=== PATIENT | female | born 2000 | race Caucasian/White ===

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

== ENCOUNTER 2021-07-04 18:28 | Inpatient (IN) ==
[2021-07-04 15:30] LABS: Bacteria,Urine Few per hpf (None-Few); Bilirubin,Urine Negative (Negative); Blood,Urine Negative (Negative); Clarity,Urine Turbid (Clear); Color,Urine Light-Yellow (Yellow); Glucose,Urine (UA) Normal (Normal); Ketones,Urine Trace mg/dL (Negative); Leukocyte Esterase,Urine Moderate (Negative); Mucus,Urine Few per lpf (None-Few); Nitrite,Urine Negative (Negative); Protein,Urine 30 mg/dL (Neg-Trace); RBC,Urine 0-3 per hpf (0-3); Specific Gravity,Urine 1.022 (1.010-1.025); Squamous Epithelial Cell,Urine Moderate per hpf (None-Few); Urobilinogen,Urine Normal (Normal); WBC,Urine 0-3 per hpf (0-3)
[~2021-07-04 18:28] MED LIST changes: +*HR* Nalbuphine 10 MG/ML AMPUL IV PRN; -*HR* Nalbuphine 10 MG/ML AMPUL IVP PRN; +Azithromycin 500 MG in 0.9 % Sodium Chloride 250 ML IVPB PRN; +Lidocaine 1% 20 ML MDV INFILT PRN; -Ondansetron 4 MG/2 ML VIAL IVP PRN; +Penicillin G Potassium 5,000,000 UNIT in 0.9 % Sodium Chloride Mini Bag 100 ML IVPB ONE; +Ringers Solution, Lactated 1,000 ML IVC SCH
[2021-07-04 19:03] LABS: Basophils % 0.5 %; Eosinophils # 0.2 K/mcL (0.0-0.6); Hematocrit 30.1 % (35.3-44.9); Hemoglobin 9.8 g/dL (11.5-15.4); Immature Granulocytes % 1.3 % (0-4); Lymphocytes # 2.1 K/mcL (0.6-4.6); Lymphocytes % 25.2 %; Mean Corpuscular HGB Conc 32.6 g/dL (31.6-35.5); Mean Platelet Volume 10.3 fL (9.4-12.4); Monocytes # 0.9 K/mcL (0.0-1.3); Monocytes % 10.9 %; Neutrophils # 5.1 K/mcL (1.6-8.9); Platelet Count 174 K/mcL (140-400); Red Cell Distribution Width 14.9 % (11.5-14.5); Segmented Neutrophils % 60.1 %; White Blood Count 8.4 K/mcL (4.3-11.1)
[2021-07-04 19:21] LABS: Amphetamine Screen,Urine Negative ng/mL (Cutoff=1000); Barbiturate Screen,Urine Negative ng/mL (Cutoff=200); Benzodiazepines Screen,Urine Negative ng/mL (Cutoff=200); Cannabinoid Screen,Urine Positive ng/mL (Cutoff = 50); Cocaine Screen,Urine Negative ng/mL (Cutoff= 300); Opiate Screen,Urine Negative ng/mL (Cutoff=300); Phencyclidine Screen,Urine Negative ng/mL (Cutoff=25)
[2021-07-04] MEDS ORDERED: Acetaminophen 325 MG TABLET PO ONE (19:31)
[2021-07-04 19:39] LABS: Influenza A PCR Negative (Negative); Influenza B PCR Negative (Negative); Resp. Syncytial Virus PCR Negative (Negative)
[2021-07-04 19:40] LABS: SARS-CoV-2 by PCR (In House) Negative (Negative)
[2021-07-04] MEDS: Ondansetron 4 MG/2 ML VIAL IVP PRN (19:40)
[2021-07-04] MEDS ORDERED: Ropivacaine/PF 0.2% 20 ML VIAL EP ONE (20:02)
[2021-07-04] MEDS ORDERED: EPHEDrine 50 MG/ML VIAL IVP PRN (20:02)
[2021-07-04] MEDS ORDERED: *HR* FentaNYL (PF) 100 MCG/2 ML VIAL EP ONE (20:02)
[2021-07-04] MEDS ORDERED: D5% in 0.45% NACL 1,000 ML IVC SCH (21:30)
[2021-07-04] MEDS: Penicillin G Potassium 2,500,000 UNIT/105 ML MLS IVPB SCH (22:36)
[2021-07-05] MEDS: Penicillin G Potassium 2,500,000 UNIT/105 ML MLS IVPB SCH ×4 (02:03→14:32)
[2021-07-05] MEDS: Epidural Premix (fent/bupiv) 110 ML EP SCH ×2 (04:05→10:00)
[2021-07-05] MEDS: Ondansetron 4 MG/2 ML VIAL IVP PRN ×2 (07:38→15:30)
[2021-07-05] MEDS ORDERED: Oxytocin 20 units/ LR 1000 mL 20 UNIT/1,000 ML BAG IVC SCH ×2 (10:15→18:30)
[2021-07-05] MEDS ORDERED: miSOPROStoL 100 MCG TABLET RC ONE (12:06)
[2021-07-05] MEDS ORDERED: *HR* Ropivacaine/PF 0.5% 20 ML VIAL ONE (13:37)
[2021-07-05] MEDS ORDERED: Ropivacaine/PF 0.2% 20 ML VIAL ONE (13:37)
[2021-07-05] MEDS ORDERED: *HR* FentaNYL (PF) 100 MCG/2 ML VIAL ONE (14:48)
[2021-07-05] MEDS ORDERED: Bupivacaine-MPF 0.25% 10 ML VIAL ONE (14:58)
[2021-07-05] MEDS ORDERED: Calcium Gluconate 1,000 MG/10 ML VIAL IVP PRN (15:49)
[2021-07-05] MEDS ORDERED: Magnesium Sulf 20 gm/SW 500mL 20 GM/500 ML IV.SOLN IVC SCH (16:00)
[2021-07-05 16:25] LABS: Basophils % 0.4 %; Eosinophils # 0.1 K/mcL (0.0-0.6); Eosinophils % 0.9 %; Hematocrit 29.8 % (35.3-44.9); Hemoglobin 9.5 g/dL (11.5-15.4); Immature Granulocytes % 0.9 % (0-4); Lymphocytes # 1.7 K/mcL (0.6-4.6); Lymphocytes % 17.3 %; Mean Corpuscular HGB Conc 31.9 g/dL (31.6-35.5); Mean Corpuscular Hemoglobin 27.2 pg (28.0-33.3); Mean Corpuscular Volume 85.4 fL (83.0-100.0); Mean Platelet Volume 10.4 fL (9.4-12.4); Monocytes # 0.8 K/mcL (0.0-1.3); Monocytes % 7.9 %; Neutrophils # 7.3 K/mcL (1.6-8.9); Platelet Count 170 K/mcL (140-400); Red Blood Count 3.49 M/mcL (3.82-4.97); Red Cell Distribution Width 14.7 % (11.5-14.5); Segmented Neutrophils % 72.6 %
[2021-07-05 16:33] LABS: Protein/Creatinine Ratio,Urine 0.29 mg/mg (0.00-0.20)
[2021-07-05 16:43] LABS: Alanine Aminotransferase 8 Units/L (7-52); Aspartate Amino Transferase 14 Units/L (13-39); BUN/Creatinine Ratio 11 (6-26); Blood Urea Nitrogen 6 mg/dL (6-20); Uric Acid 5.9 mg/dL (2.3-7.6); eGFR For African Americans > 60 (> 60); eGFR For Non-African Americans > 60 (> 60)
[2021-07-05] MEDS ORDERED: Benzocaine/Menthol 56 GM AEROSOL SPRAY TP PRN (18:30)
[2021-07-05] MEDS ORDERED: Lanolin 7 G OINT...G. TP PRN (18:30)
[2021-07-05] MEDS ORDERED: Ondansetron ODT 4 MG TAB.RAPDIS SL PRN (18:30)
[2021-07-05] MEDS: Acetaminophen 325 MG TABLET PO SCH (19:08)
[2021-07-05] MEDS: Ibuprofen 600 MG TABLET PO SCH (20:28)
[2021-07-06] MEDS: Acetaminophen 325 MG TABLET PO SCH ×4 (01:30→23:44)
[2021-07-06] MEDS ORDERED: Magnesium Sulf 20 gm/SW 500mL 20 GM/500 ML IV.SOLN IVC SCH ×2 (03:00→08:50)
[2021-07-06] MEDS: Ibuprofen 600 MG TABLET PO SCH ×4 (03:38→23:44)
[2021-07-06] MEDS ORDERED: Calcium Gluconate 1,000 MG/10 ML VIAL IVP PRN ×2 (04:57→08:50)
[2021-07-06 07:33] LABS: Alanine Aminotransferase 7 Units/L (7-52); Aspartate Amino Transferase 14 Units/L (13-39); BUN/Creatinine Ratio 6 (6-26); Blood Urea Nitrogen 3 mg/dL (6-20); Lactate Dehydrogenase 166 Units/L (140-271); Uric Acid 5.6 mg/dL (2.3-7.6); eGFR For African Americans > 60 (> 60); eGFR For Non-African Americans > 60 (> 60)
[2021-07-06] MEDS ORDERED: Oxytocin 20 units/ LR 1000 mL 20 UNIT/1,000 ML BAG IVC SCH (08:50)
[2021-07-06] MEDS ORDERED: Benzocaine/Menthol 56 GM AEROSOL SPRAY TP PRN (08:50)
[2021-07-06] MEDS ORDERED: Ondansetron ODT 4 MG TAB.RAPDIS SL PRN (08:50)
[2021-07-06] MEDS ORDERED: Lanolin 7 G OINT...G. TP PRN (08:50)
[2021-07-06] MEDS ORDERED: Prenatal Vit/FA 1 EACH TABLET PO SCH ×2 (09:00)
[2021-07-07 07:37] VITALS: BP 128/87; PULSE 100; TEMP 98.8; O2SAT 97
[2021-07-07 09:18] LABS: Basophils # 0.1 K/mcL (0.0-0.2); Basophils % 0.7 %; Eosinophils # 0.3 K/mcL (0.0-0.6); Eosinophils % 3.5 %; Hematocrit 22.5 % (35.3-44.9); Hemoglobin 7.1 g/dL (11.5-15.4); Immature Granulocytes % 0.8 % (0-4); Lymphocytes # 3.1 K/mcL (0.6-4.6); Lymphocytes % 32.2 %; Mean Corpuscular HGB Conc 31.6 g/dL (31.6-35.5); Mean Corpuscular Hemoglobin 27.1 pg (28.0-33.3); Mean Corpuscular Volume 85.9 fL (83.0-100.0); Mean Platelet Volume 10.2 fL (9.4-12.4); Monocytes # 0.8 K/mcL (0.0-1.3); Monocytes % 8.8 %; Neutrophils # 5.2 K/mcL (1.6-8.9); Platelet Count 243 K/mcL (140-400); Red Blood Count 2.62 M/mcL (3.82-4.97); White Blood Count 9.6 K/mcL (4.3-11.1)
[2021-07-07] MEDS: Acetaminophen 325 MG TABLET PO SCH (11:46)
[2021-07-07] MEDS: Ibuprofen 600 MG TABLET PO SCH (11:46)
== END 2021-07-07 17:50 | disposition home or self-care (01) | DRG 560 ==
LOC: 1NENULAB → 1NENUOBS 07-05 20:18
PROVIDERS: ADMIT Obstetrics & Gynecology; ATTEND Obstetrics & Gynecology